=== PATIENT | female | born 1945 | race Caucasian/White ===

== ENCOUNTER 2020-08-27 12:36 | Inpatient (IN) ==
[2020-08-27] MEDS ORDERED: IOPAMIDOL 100 ML BOTTLE IV ONE (12:37)
[2020-08-27 12:53] LABS: POC Creatinine 0.9 mg/dL (0.6-1.2)
--- NOTE | 2020-08-27 13:04 | Cat Scan Report ---
History: Acute neurologic deficit with stroke symptoms technique: The brain was imaged without contrast at 2.5 mm intervals. Sagittal and coronal reformats were created. Radiation exposure was limited using dose reduction technology. FINDINGS: There is a patchy distribution of decreased attenuation in the right matter throughout the frontal and parietal lobes bilaterally. This has no mass effect. No infarct is identified. There is no hemorrhage or mass effect. No abnormal extra-axial fluid collection is present. There is low-grade atrophy in the frontal lobes and around the sylvian fissures. The right sphenoid sinus is nearly completely opacified with inflammatory material. IMPRESSION: Age-related degenerative changes above the tentorium with white matter ischemia or degeneration. severe right-sided sphenoid sinusitis Dr. Prieto was called with the results Interpreted and Authenticated by: Theodore Waddell 08/27/20
[2020-08-27 13:08] LABS: POC INR 1.1 (0.8-1.2); POC Pro Time 12.7 sec (11.9-14.5)
--- NOTE | 2020-08-27 13:28 | Emergency Department Note ---
Neuro HPI General Chief Complaint: Neuro Symptoms/Deficit Stated Complaint: neuro symptoms Time Seen by Provider: 08/27/20 12:38 Source: patient Mode of arrival: ambulatory Limitations: no limitations History of Present Illness HPI Narrative: Narrative: This pleasant 75-year-old female developed left-sided dental discomfort, and went to bed around 7 PM. Everything else seem to be normal per the son-in-law and/or daughter. When the daughter went to check on her around 930 this morning she was still in bed which is markedly abnormal for her when she usually gets up at 430 or 5:30 in the morning. She was exhibiting some slurred speech and difficulty finding words. 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 She has difficulty answering some other questions, as if she is thinking and thinking again and not able to come up with an answer even with repeated questioning. Other times she seems able to speak some things and answer some questions. She obeys commands quite well. Review of Systems ROS ROS Narrative: Narrative: Patient admits to occasional dysuria and occasionally is taking Azo. She has been evaluated in the past for UTIs and has been treated. Has not had any symptoms in the past few days. No fevers chills or sweats. No runny nose or sore throat. She does not have diarrhea. 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 Aspirin used to make her bleed but that was before this tumor was removed. She denies current chest pain. Denies shortness of breath. No cough. Mild headache. No visual changes No joint symptoms No rashes. No depression or anxiety but admits to grief due to her passing 2 years ago. No ease of bruising or bleeding. [facility] Narrative Patient History Narrative: Narrative: Medical/Surgical/Family History All Active Problems (Updated 08/27/20 @ 15:11 by Robbie Prieto DO) TIA (transient ischemic attack) (Acute) Dental infection (Acute) Sinusitis, acute, sphenoidal (Acute) Glaucoma (Acute) History of atrial fibrillation (Chronic) History of TIA (transient ischemic attack) and stroke (Acute) Medical History (Updated 08/27/20 @ 15:11 by Robbie Prieto DO) Glaucoma (Acute) History of atrial fibrillation (Chronic) Controlled with diltiazem and flecainide (Dr. Polo, [facility] in [place]; last evaluation early 2019). History of TIA (transient ischemic attack) and stroke (Acute) Surgical History (Updated 08/27/20 @ 13:48 by Robbie Prieto DO) History of cataract extraction with lens replacement (Acute) History of right shoulder replacement (Inactive) Had a second procedure also. Social History Smoking Status: Never smoker Exam Narrative Narrative: Narrative: General Limitations: no limitations General appearance: Present alert, in no apparent distress and nontoxic Head Head: Present atraumatic and normocephalic Eye Eye: Present normal appearance, PERRL and EOMI ENT ENT: Present normal oropharynx, mucous membranes moist and other (Tenderness around the left second bicuspid that is the only remaining tooth on the left side except for her posterior molar and one incisor. It has some medial DKA and it is tender around it. The left side of her jaw is moderately swollen. This is at the mid mandible on the left. It is mildly tender to her. No lymphadenopathy noted.) Neck Neck: Present trachea midline; Absent lymphadenopathy and thyromegaly Chest Chest: Present symmetric chest wall rise Respiratory Respiratory: Present normal lung sounds bilaterally; Absent respiratory distress, rales/crackles, wheezes, stridor, accessory muscle use and prolonged expiratory phase Cardiovascular Cardiovascular: Present regular rate and normal rhythm; Absent systolic murmur and diastolic murmur Adbominal Abdominal: Present soft and tenderness (Mild subjective just left of the xiphoid area.); Absent distention, guarding, rebound, rigidity, organomegaly and mass Extremities Extremities: Absent pedal edema, pretibial edema, calf tenderness and cyanosis Back Back: Present spinous process tenderness (Mild, subjective, to percussion of the mid and lower lumbar areas.); Absent CVA tenderness (R) and CVA tenderness (L) Neurological Neurological: Present alert, oriented X3 and CN II-XII intact Expanded Neurological Patient oriented to: Present person, place and time Speech: Present expressive aphasia (Seems to have mild difficulties in expressing herself. At times seems to be staring off trying to find words.) CRANIAL NERVES: EOM function (II, III, IV, ): Normal, facial palsy (VII): Normal and tongue deviation (XII): Normal CEREBELLAR FUNCTION: finger to nose: Normal and heel to lerma: Normal CEREBELLAR FUNCTION: normal gait Motor strength - LUE: 4/5 Motor strength - RUE: 4/5 Motor strength - LLE: 4/5 Motor strength - RLE: 4/5 UPPER MOTOR NEURON EXAM: jimmy neglect: Normal SENSORY EXAM UPPER EXTREMITY: Normal: light touch SENSORY EXAM LOWER EXTREMITY: Normal: light touch Psychiatric Psychiatric: Present normal affect, polite and pleasant; Absent depressed, ag itated, anxious and poor eye contact Skin Skin: Present warm (WNL) and dry; Absent cyanosis and pallor Course Vital Signs Vital signs: Vital Signs Temperature 98.0 F 08/27/20 12:41 Pulse Rate 120 H 08/27/20 12:41 Respiratory Rate 16 08/27/20 12:41 Blood Pressure 142/78 08/27/20 12:41 Pulse Oximetry (%) 99 08/27/20 12:41 Temperature 98.0 F 08/27/20 12:41 Pulse Rate 108 H 08/27/20 13:26 Respiratory Rate 11 L 08/27/20 15:02 Blood Pressure 181/90 08/27/20 15:01 Pulse Oximetry (%) 93 08/27/20 13:26 MDM MDM Narrative Medical decision making narrative: Narrative: 12:38 PM - interviewed and examined. Possible stroke with new onset of symptoms where she slept in, seemed to be slurring speech and hard finding words. She has a history of TIAs and CVA. Also hypertension. Significant risk based on these and these symptoms plus age 75. Code stroke called with labs and rapid CT. 12:49 PM - I spoke with Dr. Paredes, stroke neurologist, who agrees with no TPA given that her last known normal was 7 PM. Agrees with getting the CT angio of the head neck. 12:58 PM - radiologist indicates there is age-related degenerative changes but negative for infarct visible or bleed. Does have a right sphenoid sinusitis with inflammatory change. 1:30 PM - additional interview and exam as per HPI. Exam nonfocal and unremarkable. She seems to be speaking easily and well. She can spell world forward but can hardly get started to get out ADD or proceed to spell it backwards. She is able to spell house forward and backward but it is a little bit laborious. She indicates that she is speaking better than she was earlier. 1:46 PM - radiology read reviews that the CT angio of the head neck demonstrates some mild plaque in the internal carotid system but no stenotic significant lesions. Labs at this point INR was 1.1, creatinine (POC) 0.9. Multiple labs still pending. 2:35 PM approximately - I spoke with Dr. Paredes, stroke neurologist, who asked about seizure. There is no history of this. She recommends that patient be served inpatient and finish the TIA work-up of or including MRI, echocardiogram and consider discussion for anticoagulation with aspirin, a statin; and consider baseline lipid measurement. If her in patient work-up is negative consider outpatient EEG. Patient's labs came back with an elevated white count of 17.0. Hemoglobin slightly elevated at 15.2. Electrolytes quite unremarkable as is BUN and creatinine, anion gap. Glucose mildly elevated at 135. Minimal liver function tests and bilirubin at 1.3, 46 for AST and 41 for ALT. Troponin normal. 2:45 PM - spoke with hospitalist who is willing to admit this patient. We later a few minutes, discussed CT scanning of her job because of the swelling there which is tender. I spoke with the radiologist who indicates that there was a good view to this area on the CT scan of the head and neck with contrast and that this demonstrates edema of the fat layers but not an abscess. Dr. Godfrey, hospitalist, and is assuming care. Lab Data Result diagrams: 08/27/20 12:40 08/27/20 12:40 Labs: Lab Results 08/27/20 08/27/20 08/27/20 Range/Units 12:40 12:40 12:40 WBC 17.0 H (4.5-11.0) K/mcL RBC 5.27 H (4.00-5.20) M/mcL Hgb 15.2 H (12.0-15.0) g/dL Hct 44.2 (36.0-48.0) % MCV 83.9 (80.0-100.0) fL MCH 28.8 (26.0-34.0) pg MCHC 34.4 (31.0-36.0) g/dL RDW 14.6 H (11.5-14.5) % Plt Count 236 (140-440) K/mcL MPV 9.7 (7.4-10.4) fL Neut % (Auto) 89.0 H (38.0-78.0) % Lymph % (Auto) 3.8 L (15.0-49.0) % [place] % (Auto) 6.4 (1.0-12.0) % Eos % (Auto) 0.4 (0.0-7.0) % Baso % (Auto) 0.4 (0.0-2.0) % Lymph # (Auto) 0.64 L (1.50-4.80) K/mcL [place] # (Auto) 1.09 H (0.10-0.90) K/mcL Eos # (Auto) 0.06 (0.00-0.70) K/mcL Baso # (Auto) 0.06 (0.00-0.20) K/mcL Absolute Neutrophils 15.14 H (1.80-8.00) K/mcL POC PT 12.7 (11.9-14.5) sec PT 13.5 (11.9-14.5) sec POC INR 1.1 (0.8-1.2) INR 1.0 (0.9-1.1) APTT 31.8 (20.0-37.0) sec Sodium 134 (133-145) mmol/L Potassium 3.4 (3.3-5.1) mmol/L Chloride 95 L (96-108) mmol/L Carbon Dioxide 25 (22-30) mmol/L Anion Gap 14.0 (8.0-16.0) BUN 11 (8-23) mg/dL Creatinine 0.9 (0.6-1.1) mg/dL POC Creatinine 0.9 (0.6-1.2) mg/dL GFR Calculation 63 Glucose 135 H (70-105) mg/dL Calcium 9.3 (8.6-10.4) mg/dL Total Bilirubin 1.3 H (0.1-1.0) mg/dL AST 46 H (<32) U/L ALT 41 H (<40) U/L Alkaline Phosphatase 93 (39-117) U/L Troponin T (<0.03) ng/mL Total Protein 7.0 (5.9-8.4) gm/dL Albumin 4.2 (3.2-5.2) gm/dL Globulin 2.8 (2.2-3.7) gm/dL Albumin/Globulin Ratio 1.5 (1.0-2.3) Urine Color Urine Appearance (Clear) Urine pH (5.0-9.0) Ur Specific [place] (1.000-1.035) Urine Protein (Negative) mg/dL Urine Glucose (UA) (Negative) mg/dL Urine Ketones (Negative) mg/dL Urine Occult Blood (Negative) mg/dL Urine Nitrate (Negative) Urine Bilirubin (Negative) mg/dL Urine Urobilinogen mg/dL Ur Leukocyte Esterase (Negative) /ug Urine RBC (0-1) /hpf Urine WBC (0-4) /hpf Ur Squamous Epith Cells (0-4) /hpf Urine Bacteria (0) /hpf Ur Culture Indicated? 08/27/20 08/27/20 Range/Units 12:40 13:37 WBC (4.5-11.0) K/mcL RBC (4.00-5.20) M/mcL Hgb (12.0-15.0) g/dL Hct (36.0-48.0) % MCV (80.0-100.0) fL MCH (26.0-34.0) pg MCHC (31.0-36.0) g/dL RDW (11.5-14.5) % Plt Count (140-440) K/mcL MPV (7.4-10.4) fL Neut % (Auto) (38.0-78.0) % Lymph % (Auto) (15.0-49.0) % [place] % (Auto) (1.0-12.0) % Eos % (Auto) (0.0-7.0) % Baso % (Auto) (0.0-2.0) % Lymph # (Auto) (1.50-4.80) K/mcL [place] # (Auto) (0.10-0.90) K/mcL Eos # (Auto) (0.00-0.70) K/mcL Baso # (Auto) (0.00-0.20) K/mcL Absolute Neutrophils (1.80-8.00) K/mcL POC PT (11.9-14.5) sec PT (11.9-14.5) sec POC INR (0.8-1.2) INR (0.9-1.1) APTT (20.0-37.0) sec Sodium (133-145) mmol/L Potassium (3.3-5.1) mmol/L Chloride (96-108) mmol/L Carbon Dioxide (22-30) mmol/L Anion Gap (8.0-16.0) BUN (8-23) mg/dL Creatinine (0.6-1.1) mg/dL POC Creatinine (0.6-1.2) mg/dL GFR Calculation Glucose (70-105) mg/dL Calcium (8.6-10.4) mg/dL Total Bilirubin (0.1-1.0) mg/dL AST (<32) U/L ALT (<40) U/L Alkaline Phosphatase (39-117) U/L Troponin T < 0.01 (<0.03) ng/mL Total Protein (5.9-8.4) gm/dL Albumin (3.2-5.2) gm/dL Globulin (2.2-3.7) gm/dL Albumin/Globulin Ratio (1.0-2.3) Urine Color Yellow Urine Appearance Clear (Clear) Urine pH 7.0 (5.0-9.0) Ur Specific [place] 1.026 (1.000-1.035) Urine Protein Negative (Negative) mg/dL Urine Glucose (UA) Negative (Negative) mg/dL Urine Ketones 5 A (Negative) mg/dL Urine Occult Blood 0.03 (Negative) mg/dL Urine Nitrate Negative (Negative) Urine Bilirubin Negative (Negative) mg/dL Urine Urobilinogen 2.0 A mg/dL Ur Leukocyte Esterase Negative (Negative) /ug Urine RBC 4 H (0-1) /hpf Urine WBC < 1 (0-4) /hpf Ur Squamous Epith Cells 2 (0-4) /hpf Urine Bacteria None (0) /hpf Ur Culture Indicated? No Discharge Plan Patient/Caregiver Discharge Instructions Pt seen by SIGNAL REPAIRER/PA only: No Clinical Impression: TIA (transient ischemic attack), Dental infection, Sinusitis, acute, sphenoidal Patient Disposition: Xfer As Inpt ([facility])
--- NOTE | 2020-08-27 13:49 | Cat Scan Report ---
History: Acute stroke symptoms TECHNIQUE: Following injection of intravenous nonionic contrast the head and neck were imaged separately scanning during arterial phase at 2.5 mm intervals. Sagittal and coronal reformats were created of the head. Sagittal, coronal and curved linear reformatted images of the carotid arteries were acquired. The radiation exposure was limited using dose reduction technology. FINDINGS: NECK: The aortic arch and great vessels arising from the aorta are normal in caliber. Small amount of plaque is seen along the wall of the thoracic aorta. The aorta is normal in caliber with no aneurysm or dissection. Left common carotid is moderately tortuous. Right common carotid is normal. Small amount of plaque is present along the wall of the proximal internal carotids bilaterally. These are not causing stenosis. Mid and distal portions of both internal carotids are tortuous but normal in caliber. The vertebral arteries are normal in caliber. Right side is dominant. There are several small calcified plaques along the wall of the cavernous portions of both internal carotids. These are not causing stenosis. The supraclinoid internal carotids are normal. The anterior and middle cerebral arteries are normal in caliber and symmetric. There is a patent anterior communicating artery and small bilateral posterior communicating arteries. Basilar artery and branches in the basilar artery are normal caliber. There is no intracranial stenosis, thrombosis, aneurysm or vascular malformation. No enhancing lesion is present. Right sphenoid sinus is nearly completely opacified due to sinusitis. 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 Severe disc space narrowing is present at C6-7 and there is moderate disc space narrowing at C3-4, C4-5 and C5-6. There medium-size spurs on the posterior border of the C 67 disc protruding into the central canal. IMPRESSION: Mild atherosclerotic disease in the cervical and intracranial carotid arteries bilaterally but without evidence of stenosis or thrombosis Normal intracranial arterial circulation Dr. Prieto was called with the results Interpreted and Authenticated by: Theodore Waddell 08/27/20
[2020-08-27 14:04] LABS: ALT/SGPT 41 U/L (<40); AST/SGOT 46 U/L (<32); Albumin 4.2 gm/dL (3.2-5.2); Albumin/Globulin Ratio 1.5 (1.0-2.3); Alkaline Phosphatase 93 U/L (39-117); Bilirubin,Total 1.3 mg/dL (0.1-1.0); Blood Urea Nitrogen 11 mg/dL (8-23); Calcium 9.3 mg/dL (8.6-10.4); Carbon Dioxide 25 mmol/L (22-30); Chloride 95 mmol/L (96-108); Globulin 2.8 gm/dL (2.2-3.7); Glomerular Filtration Rate 63; Glucose 135 mg/dL (70-105)
[2020-08-27 14:05] LABS: Partial Thromboplastin Time 31.8 sec (20.0-37.0); Prothrombin Time 13.5 sec (11.9-14.5)
[2020-08-27 14:26] LABS: Appearance,Urine CLEAR (Clear); Bilirubin,Urine Negative (Negative); Color,Urine YELLOW; Culture Indicated,Urine No; Glucose,Urine (UA) Negative (Negative); Ketones,Urine 5 mg/dL (Negative); Leukocyte Esterase,Urine Negative /ug (Negative); Nitrate,Urine Negative (Negative); Protein,Urine Negative (Negative); Specific Gravity,Urine 1.026 (1.000-1.035); Urine Blood 0.03 mg/dL (Negative); Urine RBC 4 /hpf (0-1); Urine Squamous Epithelial Cell 2 /hpf (0-4); Urine WBC < 1 /hpf (0-4)
[2020-08-27 14:37] LABS: Basophils # (Auto) 0.06 K/mcL (0.00-0.20); Basophils % (Auto) 0.4 % (0.0-2.0); Eosinophils # (Auto) 0.06 K/mcL (0.00-0.70); Eosinophils % (Auto) 0.4 % (0.0-7.0); Hematocrit 44.2 % (36.0-48.0); Hemoglobin 15.2 g/dL (12.0-15.0); Lymphocytes # (Auto) 0.64 K/mcL (1.50-4.80); Lymphocytes % (Auto) 3.8 % (15.0-49.0); Mean Cell Volume 83.9 fL (80.0-100.0); Mean Corpuscular HGB Conc 34.4 g/dL (31.0-36.0); Mean Platelet Volume 9.7 fL (7.4-10.4); Monocytes # (Auto) 1.09 K/mcL (0.10-0.90); Monocytes % (Auto) 6.4 % (1.0-12.0); Platelet Count 236 K/mcL (140-440); RBC 5.27 M/mcL (4.00-5.20); Red Cell Distribution Width 14.6 % (11.5-14.5)
[2020-08-27] MEDS ORDERED: ASPIRIN 81 MG TAB.CHEW CHEWED ONE (14:50)
[2020-08-27] MEDS ORDERED: 0.9 % SODIUM CHLORIDE 500 ML IV ONE (14:50)
--- NOTE | 2020-08-27 15:17 | Internal Med History&Physical ---
HPI History of Present Illness Patient information: Note initiated : 08/27/20 at 3:07 pm Service Date, if different from initiated Date: [] Patient: Zenaida Odonnell a 75 y/o F admitted on for neuro symptoms. Chief Complaint: [] History of present illness: Ms. Odonnell is a 75 year old F Who was feeling a little bit ill yesterday complaining of some left jaw swelling and discomfort and worried about a tooth infection possibly. This morning she felt worse. And her family checked in on her she was still sleeping in which is unusual. I also found that she seemed to be mentally's slow difficulty expressing herself and they are worried about another stroke. In the ED she evaluated she had a CT head neck which showed no significant arterial stenosis and no acute stroke. The ED physician did discuss the CT with the radiologist and specifically talked about the jaw and there was noted to be some soft tissue edema but no abscess or other concerning findings, there was noted to be right sphenoid sinusitis. Neurologist was contacted. Patient was out of TPA window. Recommended MRI and echo. Patient is in sinus rhythm but does have a history of atrial fibrillation has been on flecainide diltiazem. 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 She was found to be hypertensive in the ED as well. She believes he took her medication recently. We do not have her full list of medications as nursing is currently trying to obtain that information. She does have a headache no other complaints. No chest pain shortness of breath. No numbness tingling or vision changes. No focal weakness. Review of Systems: Positives as above. Denies fever/chills/nausea/vomiting/chest or abdominal pain/cough/dyspnea/diarrhea. Remaining 10 point review of system reviewed negative. PFSH PFSH All Active Problems (Updated 08/27/20 @ 15:11 by Robbie Prieto DO) TIA (transient ischemic attack) (Acute) Dental infection (Acute) Sinusitis, acute, sphenoidal (Acute) Glaucoma (Acute) History of atrial fibrillation (Chronic) History of TIA (transient ischemic attack) and stroke (Acute) Medical History (Updated 08/27/20 @ 15:11 by Robbie Prieto DO) Glaucoma (Acute) History of atrial fibrillation (Chronic) Controlled with diltiazem and flecainide (Dr. Polo, [facility] in [place]; last evaluation early 2019). History of TIA (transient ischemic attack) and stroke (Acute) Surgical History (Updated 08/27/20 @ 13:48 by Robbie Prieto DO) History of cataract extraction with lens replacement (Acute) History of right shoulder replacement (Inactive) Had a second procedure also. Social History (Updated 08/27/20 @ 15:11 by Smith Godfrey DO) smoking status: Never smoker additional history: Family history: Mother with pulmonary embolism at age 43 Father of a myocardial infarction age 73 Social history: Patient denies tobacco alcohol and lives by herself. She is visiting from out of town EXAM Constitutional Vitals: Temp Pulse Resp BP Pulse Ox 98.0 F 108 H 11 L 181/90 93 08/27/20 12:41 08/27/20 13:26 08/27/20 15:02 08/27/20 15:01 08/27/20 13:26 Exam: General: Alert, Awake, No acute Distress Eyes/N/T: EOMI, PERRL, Head/Neck: neck supple, normocephalic atraumatic CV: RRR, No murmurs, normal s1/s2 Pulm: Clear b/l, no wheezing/rhonchi/rales Abd: soft, nontender, +BS x4 Ext: no clubbing/cyanosis/edema Neuro: Alert, no focal deficits, moves all extremities, CN 2-12 grossly intact, symmetrical strength b/l upper/lower, sensations intact b/l upper/lower. Speech clear but she seems slow to answer some questions appears as some difficulty recalling information specifically medications and some of her other history Skin: warm/dry DATA Data Completed and Pending Labs: Labs from last 24 hours 08/27/20 08/27/20 08/27/20 13:37 12:40 12:40 WBC RBC Hgb Hct MCV MCH MCHC RDW Plt Count MPV Neut % (Auto) Lymph % (Auto) [place] % (Auto) Eos % (Auto) Baso % (Auto) Lymph # (Auto) [place] # (Auto) Eos # (Auto) Baso # (Auto) Absolute Neutrophils POC PT PT POC INR INR APTT Sodium 134 Potassium 3.4 Chloride 95 L Carbon Dioxide 25 Anion Gap 14.0 BUN 11 Creatinine 0.9 POC Creatinine 0.9 GFR Calculation 63 Glucose 135 H Calcium 9.3 Total Bilirubin 1.3 H AST 46 H ALT 41 H Alkaline Phosphatase 93 Troponin T < 0.01 Total Protein 7.0 Albumin 4.2 Globulin 2.8 Albumin/Globulin Ratio 1.5 Urine Color Yellow Urine Appearance Clear Urine pH 7.0 Ur Specific [place] 1.026 Urine Protein Negative Urine Glucose (UA) Negative Urine Ketones 5 A Urine Occult Blood 0.03 Urine Nitrate Negative Urine Bilirubin Negative Urine Urobilinogen 2.0 A Ur Leukocyte Esterase Negative Urine RBC 4 H Urine WBC < 1 Ur Squamous Epith Cells 2 Urine Bacteria None Ur Culture Indicated? No 08/27/20 08/27/20 12:40 12:40 WBC 17.0 H RBC 5.27 H Hgb 15.2 H Hct 44.2 MCV 83.9 MCH 28.8 MCHC 34.4 RDW 14.6 H Plt Count 236 MPV 9.7 Neut % (Auto) 89.0 H Lymph % (Auto) 3.8 L [place] % (Auto) 6.4 Eos % (Auto) 0.4 Baso % (Auto) 0.4 Lymph # (Auto) 0.64 L [place] # (Auto) 1.09 H Eos # (Auto) 0.06 Baso # (Auto) 0.06 Absolute Neutrophils 15.14 H POC PT 12.7 PT 13.5 POC INR 1.1 INR 1.0 APTT 31.8 Sodium Potassium Chloride Carbon Dioxide Anion Gap BUN Creatinine POC Creatinine GFR Calculation Glucose Calcium Total Bilirubin AST ALT Alkaline Phosphatase Troponin T Total Protein Albumin Globulin Albumin/Globulin Ratio Urine Color Urine Appearance Urine pH Ur Specific [place] Urine Protein Urine Glucose (UA) Urine Ketones Urine Occult Blood Urine Nitrate Urine Bilirubin Urine Urobilinogen Ur Leukocyte Esterase Urine RBC Urine WBC Ur Squamous Epith Cells Urine Bacteria Ur Culture Indicated? A/P Narrative A/P Narrative: A: *TIA vs CVA (h/o CVA's) with impaired cognition, difficulty recalling information: -ABCD=4-5 *AFib: has been on Diltiazem/flecainide/ASA. currently in NSR -Had a bleeding tumor that was removed years ago which I believe why she wasn't on anticoagulation, no discussion since that time regarding anticoagulation per pt -follows with [facility] in [place] *HTN: 2/2 above *sinusitis/?developing oral infection left lower -CT no abscess but left jaw soft tissue swelling * P: -ASA/Statin -Discussion of anticoagulation -MRI/Echo -Obtain records from [place] [facility] -Permissive hypertension 24 -lipid panel -clarify home medications -abx - -PT/OT/ST -ppx: Lovenox DNR Time Spent With Patient Time: Total time spent is greater than 50% in coordination of care (as documented) at patient's floor/unit and/or counseling patient: QUALITY Stroke Onset of Symptoms Date: 08/26/20 Onset of Symptoms Time: 19:00 Symptom Onset Unknown: Yes
[2020-08-27] MEDS ORDERED: 0.9 % SODIUM CHLORIDE 1,000 ML IV SCH (16:32)
[2020-08-27] MEDS ORDERED: IPRATROPIUM/ALBUTEROL 3 ML AMPUL.NEB NEB PRN (16:32)
[2020-08-27] MEDS ORDERED: SENNOSIDES 1 TABLET PO PRN (16:32)
[2020-08-27] MEDS ORDERED: METOPROLOL TARTRATE 5 MG/5 ML VIAL IV PRN (16:32)
[2020-08-27] MEDS ORDERED: ACETAMINOPHEN 325 MG TABLET PO PRN (16:32)
[2020-08-27] MEDS ORDERED: LACTULOSE 20 GM/30 ML ORAL.SOL PO PRN (16:32)
[2020-08-27] MEDS ORDERED: MAGNESIUM SULFATE 2 GM/50 ML BAG IV PRN (16:32)
[2020-08-27] MEDS ORDERED: ONDANSETRON 4 MG/2 ML VIAL IV PRN (16:32)
[2020-08-27] MEDS ORDERED: LABETALOL 5 MG/ML ML IV PRN (16:32)
[2020-08-27] MEDS ORDERED: POTASSIUM CHLORIDE 20 MEQ TABLET PO PRN ×2 (16:32)
[2020-08-27] MEDS ORDERED: AMOXICILLIN/POTASSIUM CLAV 875 MG TABLET PO SCH (17:30)
[2020-08-27 17:34] LABS: C-Reactive Protein 17.7 mg/dL (0.03-0.80)
--- NOTE | 2020-08-27 17:44 | Magnetic Resonance Report ---
History: Stroke symptoms with difficulty speaking TECHNIQUE: Stroke protocol was utilized to technique: The diffusion images show no evidence of an infarct. No hemorrhage or mass are present. The T2 FLAIR images reveal the presence of numerous high signal lesions in the centrum semiovale throughout the frontal and parietal lobes and posterior temporal lobes. These have no mass effect or surrounding edema. There is sparing of the overlying cortex. Ventricles are normal in size. The basal ganglia brainstem and cerebellum are normal. Right sphenoid sinus is completely opacified with secretions or inflammatory material. IMPRESSION: No evidence of hemorrhage or acute infarct Severe white matter disease above the tentorium which may be due to age-related ischemia or degeneration Dr. Godfrey was called with the results Interpreted and Authenticated by: Theodore Waddell 08/27/20
[2020-08-27 17:49] LABS: Lymphocytes % 6 % (15-49); Monocytes % (Manual) 2 % (1-12); Platelet Estimate NORMAL (Normal); RBC Morphology NORMAL (Normal); Segmented Neutrophils % 92 % (38-78)
[2020-08-27 18:35] LABS: Erythrocyte Sedimentation Rate 7 mm/hr (0-20)
[2020-08-27] MEDS: ATORVASTATIN 40 MG TABLET PO SCH (20:22)
[2020-08-27] MEDS: PIPERACILLIN SODIUM/TAZOBACTAM 3.375 GM in DEXTROSE 5% IN WATER 50 ML IV SCH (20:22)
[2020-08-27] MEDS: 0.9 % SODIUM CHLORIDE 10 ML SYRINGE IV SCH (20:23)
[2020-08-27] MEDS: DOCUSATE SODIUM 100 MG CAPSULE PO SCH (20:29)
[2020-08-27] MEDS: HYDROcodone/APAP 10/325MG TABLET PO PRN (20:29)
[2020-08-27] MEDS: AMITRIPTYLINE 25 MG TABLET PO SCH (20:29)
[2020-08-28] MEDS: PIPERACILLIN SODIUM/TAZOBACTAM 3.375 GM in DEXTROSE 5% IN WATER 50 ML IV SCH ×5 (00:35→23:56)
[2020-08-28] MEDS: 0.9 % SODIUM CHLORIDE 10 ML SYRINGE IV SCH ×3 (05:47→20:05)
[2020-08-28] MEDS: HYDROcodone/APAP 10/325MG TABLET PO PRN ×2 (06:25→17:30)
[2020-08-28 06:46] LABS: Basophils # (Auto) 0.04 K/mcL (0.00-0.20); Basophils % (Auto) 0.4 % (0.0-2.0); Eosinophils # (Auto) 0.03 K/mcL (0.00-0.70); Eosinophils % (Auto) 0.3 % (0.0-7.0); Hemoglobin 12.4 g/dL (12.0-15.0); Lymphocytes # (Auto) 0.54 K/mcL (1.50-4.80); Mean Cell Volume 86.7 fL (80.0-100.0); Mean Corpuscular HGB Conc 33.5 g/dL (31.0-36.0); Mean Platelet Volume 9.9 fL (7.4-10.4); Monocytes # (Auto) 0.55 K/mcL (0.10-0.90); Monocytes % (Auto) 6.2 % (1.0-12.0); Neutrophils % (Auto) 87.1 % (38.0-78.0); Platelet Count 173 K/mcL (140-440); RBC 4.27 M/mcL (4.00-5.20); Red Cell Distribution Width 14.7 % (11.5-14.5); WBC 8.9 K/mcL (4.5-11.0)
[2020-08-28 07:19] LABS: ALT/SGPT 62 U/L (<40); AST/SGOT 58 U/L (<32); Albumin 3.3 gm/dL (3.2-5.2); Albumin/Globulin Ratio 1.4 (1.0-2.3); Alkaline Phosphatase 80 U/L (39-117); Bilirubin,Direct 0.5 mg/dL (<0.3); Bilirubin,Total 1.5 mg/dL (0.1-1.0); Blood Urea Nitrogen 11 mg/dL (8-23); Calcium 8.6 mg/dL (8.6-10.4); Carbon Dioxide 28 mmol/L (22-30); Chloride 99 mmol/L (96-108); Globulin 2.4 gm/dL (2.2-3.7); Glomerular Filtration Rate 63; Glucose 105 mg/dL (70-105); Lactate Dehydrogenase 173 U/L (135-225); Phosphorous 2.2 mg/dL (2.5-4.5); Triglycerides 65 mg/dL (<150); Uric Acid 1.9 mg/dL (2.5-8.0)
[2020-08-28] MEDS ORDERED: POTASSIUM CHLORIDE 40 MEQ in DEXTROSE 5% IN WATER 500 ML IV ONE (07:20)
[2020-08-28] MEDS ORDERED: POTASSIUM CHLORIDE 20 MEQ TABLET PO ONE (07:20)
--- NOTE | 2020-08-28 07:24 | Internal Med Progress Note ---
SUBJECTIVE Subjective Patient information: Note initiated : 08/28/20 at 7:16 am Service Date, if different from initiated Date: [] Patient: Zenaida Odonnell a 75 y/o F admitted on 08/27/20 for neuro symptoms. Chief Complaint: [] Interval history: History of present illness: Ms. Odonnell is a 75 year old F Who was feeling a little bit ill yesterday complaining of some left jaw swelling and discomfort and worried about a tooth infection possibly. This morning she felt worse. And her family checked in on her she was still sleeping in which is unusual. I also found that she seemed to be mentally's slow difficulty expressing herself and they are worried about another stroke. In the ED she evaluated she had a CT head neck which showed no significant arterial stenosis and no acute stroke. The ED physician did discuss the CT with the radiologist and specifically talked about the jaw and there was noted to be some soft tissue edema but no abscess or other concerning findings, there was noted to be right sphenoid sinusitis. Neurologist was contacted. Patient was out of TPA window. Recommended MRI and echo. Patient is in sinus rhythm but does have a history of atrial fibrillation has been on flecainide diltiazem. 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 She was found to be hypertensive in the ED as well. She believes he took her medication recently. We do not have her full list of medications as nursing is currently trying to obtain that information. She does have a headache no other complaints. No chest pain shortness of breath. No numbness tingling or vision changes. No focal weakness. 08/28 Patient states she is feeling better today. No overnight events or new complaints. She feels her swelling in her jaw is improved. Mentation more clear. No leukocytosis on this morning's labs. Mild transaminitis but denies abdominal pain. Mildly elevated procalcitonin yesterday. Constitutional Vitals: Vital Signs Temp Pulse Resp BP Pulse Ox 99.3 F H 79 20 151/68 96 08/28/20 04:01 08/28/20 04:01 08/28/20 04:01 08/28/20 04:01 08/28/20 04:01 Period Temp Pulse Resp BP Sys/Roa Pulse Ox Last 24 Hr 98.0 F-101.6 F 66-120 09-20 108-193/45-101 91-99 Intake and Output 08/27/20 08/28/20 08/28/20 21:59 05:59 13:59 Intake Total 550 350 Balance 550 350 Weight 64.954 kg Intake & Output: Intake & Output 08/27/20 08/28/20 08/28/20 21:59 05:59 13:59 Intake Total 550 350 Balance 550 350 Weight 64.954 kg Intake: IV 550 50 Sodium Chloride 0.9% 500 ml @ 500 Wide Open IV BOLUS ONE Rx#: [id number] Zosyn 3.375 gm In Dextrose 5% 50 50 in Water 50 ml @ 100 mls/hr IV Q6H [facility] Rx#:[id number] Oral 300 Other: Stool Size Small Stool Color Brown Stool Consistency Soft # Voids 1 # Bowel Movements 1 Exam: General: Alert, Awake, No acute Distress Eyes/N/T: EOMI,, Head/Neck: neck supple, CV: RRR, No murmurs, Pulm: Clear b/l, no wheezing/rhonchi/rales Abd: soft, nontender, +BS x4 Ext: no clubbing/cyanosis/edema Neuro: Alert, no focal deficits, moves all extremities, CN 2-12 grossly intact, symmetrical strength b/l upper/lower, sensations intact b/l upper/lower. Speech clear Skin: warm/dry OBJ DATA Labs CBC & Chem 7: 08/28/20 05:08 08/28/20 05:08 Labs: Abnormal Lab Results 08/28/20 08/27/20 08/27/20 05:08 16:37 16:36 WBC RBC Hgb RDW 14.7 H Neut % (Auto) 87.1 H Lymph % (Auto) 6.0 L Lymph # (Auto) 0.54 L [place] # (Auto) Seg Neutrophils % 92 H Lymphocytes % 6 L Absolute Neutrophils Chloride Glucose Total Bilirubin AST ALT C-Reactive Protein LDL Cholesterol, Calc Procalcitonin 0.46 H Urine Ketones Urine Urobilinogen Urine RBC 08/27/20 08/27/20 08/27/20 13:37 12:40 12:40 WBC RBC Hgb RDW Neut % (Auto) Lymph % (Auto) Lymph # (Auto) [place] # (Auto) Seg Neutrophils % Lymphocytes % Absolute Neutrophils Chloride 95 L Glucose 135 H Total Bilirubin 1.3 H AST 46 H ALT 41 H C-Reactive Protein 17.70 H LDL Cholesterol, Calc 100 H Procalcitonin Urine Ketones 5 A Urine Urobilinogen 2.0 A Urine RBC 4 H 08/27/20 12:40 WBC 17.0 H RBC 5.27 H Hgb 15.2 H RDW 14.6 H Neut % (Auto) 89.0 H Lymph % (Auto) 3.8 L Lymph # (Auto) 0.64 L [place] # (Auto) 1.09 H Seg Neutrophils % Lymphocytes % Absolute Neutrophils 15.14 H Chloride Glucose Total Bilirubin AST ALT C-Reactive Protein LDL Cholesterol, Calc Procalcitonin Urine Ketones Urine Urobilinogen Urine RBC Meds: Medications Acetaminophen (Tylenol) 650 mg PO Q6HP PRN PRN Reason: PAIN/FEVER > 101 Last Admin: 08/27/20 17:33 Dose: 650 mg Documented by: Hydrocodone Bitart/Acetaminophen ([place] 10/325mg) 1 tab PO Q6HP PRN; Protocol PRN Reason: Pain Last Admin: 08/28/20 06:25 Dose: 1 tab Documented by: Albuterol/Ipratropium (Duoneb) 3 ml NEB Q4HP PRN PRN Reason: Shortness Of Breath Amitriptyline HCl (Elavil) 25 mg PO HS [facility] Last Admin: 08/27/20 20:29 Dose: 25 mg Documented by: Aspirin (Aspirin) 81 mg PO DAILY [facility] Atorvastatin Calcium (Lipitor) 80 mg PO HS [facility] Last Admin: 08/27/20 20:22 Dose: 80 mg Documented by: Citalopram Hydrobromide (Celexa) 10 mg PO DAILY [facility] Diltiazem HCl (Cardizem Cd) 360 mg PO DAILY [facility] Docusate Sodium (Colace) 100 mg PO BID [facility] Last Admin: 08/27/20 20:29 Dose: 100 mg Documented by: Enoxaparin Sodium (Lovenox) 40 mg SQ DAILY [facility] Hydrochlorothiazide (Oretic) 25 mg PO QDAY [facility] Potassium Chloride 40 meq/ (Dextrose) 520 mls @ 130 mls/hr IV UD PRN PRN Reason: Potassium < 3 Magnesium Sulfate (Magnesium Sulfate) 2 gm in 50 mls @ 50 mls/hr IV UD PRN PRN Reason: Magnesium </= 1.6 Piperacillin Sod/Tazobactam (Sod 3.375 gm/ Dextrose) 50 mls @ 100 mls/hr IV Q6H [facility]; Protocol Last Admin: 08/28/20 05:29 Dose: 100 mls/hr Documented by: Labetalol HCl (Trandate) 0 mg IV Q2HP PRN PRN Reason: Hypertension Lactulose (Cephulac) 20 gm PO DAILYP PRN PRN Reason: Constipation Losartan Potassium (Cozaar) 100 mg PO DAILY [facility] Metoprolol Tartrate (Lopressor) 5 mg IV Q2HP PRN PRN Reason: Tachyarrhythmias HR>110 Omeprazole (Prilosec) 20 mg PO ACB [facility] Ondansetron HCl (Zofran) 4 mg IV Q4HP PRN PRN Reason: Nausea And Vomiting Pneumococcal Polyvalent Vaccine (Pneumovax 23) 0.5 ml IM .ONCE ONE Stop: 08/29/20 10:01 Potassium Chloride (Kdur) 40 meq PO UD PRN PRN Reason: Potssium is 3-3.5 Potassium Chloride (Kdur) 40 meq PO UD PRN PRN Reason: Potassium < 3 Senna (Senokot) 2 tab PO DAILYP PRN PRN Reason: Constipation Sodium Chloride (Saline Flush) 10 ml IV Q8 [facility] Last Admin: 08/28/20 05:47 Dose: Not Given Documented by: A/P Narrative A/P Narrative: A: *?TIA with impaired cognition, difficulty recalling information; vs sepsis related -ABCD=4-5 -MRI no acute infarct but significant white matter disease *AFib: has been on Diltiazem/flecainide/ASA. 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
[2020-08-28] MEDS: POTASSIUM CHLORIDE 40 MEQ in DEXTROSE 5% IN WATER 500 ML IV PRN ×2 (07:26→07:33)
[2020-08-28] MEDS: OMEPRAZOLE 20 MG CAPSULE PO SCH (07:33)
[2020-08-28] MEDS: DILTIAZEM 180 MG CAP.XL.24H PO SCH (11:43)
[2020-08-28] MEDS: LOSARTAN 50 MG TABLET PO SCH (11:44)
[2020-08-28] MEDS: DOCUSATE SODIUM 100 MG CAPSULE PO SCH ×2 (11:45→20:01)
[2020-08-28] MEDS: HYDROCHLOROTHIAZIDE 25 MG TABLET PO SCH (11:45)
[2020-08-28] MEDS: ASPIRIN 81 MG TAB.CHEW PO SCH (11:45)
[2020-08-28] MEDS: ENOXAPARIN 40 MG/0.4 ML SYRINGE SQ SCH (11:45)
[2020-08-28] MEDS: CITALOPRAM 20 MG TABLET PO SCH (11:46)
--- NOTE | 2020-08-28 11:50 | Ultrasound Report ---
History: Elevated liver enzymes FINDINGS: The portal triads in both left and right lobes of the liver are unusually bright and echogenic. The overall size liver is normal. No mass is identified. Doppler shows normal blood flow in the hepatic and portal veins. Gallbladder is somewhat distended and measures 10.2 cm in length. The wall measures up to 3.4 mm in thickness. No para cholecystic fluid collection is present in the patient was nontender while scanning over the gallbladder. The extrahepatic bile ducts are mildly distended and range from 5 to 7 mm in size. No stone is seen within the duct. The head neck and body the pancreas are normal. The tail is obscured by bowel gas. No ascites is present. 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 This is a nonspecific finding. This may be seen with acute hepatitis. It is also associated with leukemia or lymphoma. A fasting liver may sometimes have a similar appearance. Distended gallbladder with borderline thickened wall and borderline dilated bile ducts Interpreted and Authenticated by: Theodore Waddell 08/28/20
[2020-08-28] MEDS: ATORVASTATIN 40 MG TABLET PO SCH (20:05)
[2020-08-28] MEDS: AMITRIPTYLINE 25 MG TABLET PO SCH (20:05)
[2020-08-29] MEDS: PIPERACILLIN SODIUM/TAZOBACTAM 3.375 GM in DEXTROSE 5% IN WATER 50 ML IV SCH ×2 (05:37→12:06)
[2020-08-29] MEDS: 0.9 % SODIUM CHLORIDE 10 ML SYRINGE IV SCH ×3 (05:37→20:27)
[2020-08-29] MEDS: OMEPRAZOLE 20 MG CAPSULE PO SCH (06:26)
--- NOTE | 2020-08-29 07:24 | Internal Med Progress Note ---
SUBJECTIVE Subjective Patient information: Note initiated : 08/29/20 at 7:20 am Service Date, if different from initiated Date: [] Patient: Zenaida Odonnell a 75 y/o F admitted on 08/27/20 for neuro symptoms. Chief Complaint: [] Interval history: History of present illness: Ms. Odonnell is a 75 year old F Who was feeling a little bit ill yesterday complaining of some left jaw swelling and discomfort and worried about a tooth infection possibly. This morning she felt worse. And her family checked in on her she was still sleeping in which is unusual. I also found that she seemed to be mentally's slow difficulty expressing herself and they are worried about another stroke. In the ED she evaluated she had a CT head neck which showed no significant arterial stenosis and no acute stroke. The ED physician did discuss the CT with the radiologist and specifically talked about the jaw and there was noted to be some soft tissue edema but no abscess or other concerning findings, there was noted to be right sphenoid sinusitis. Neurologist was contacted. Patient was out of TPA window. Recommended MRI and echo. Patient is in sinus rhythm but does have a history of atrial fibrillation has been on flecainide diltiazem. 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 She was found to be hypertensive in the ED as well. She believes he took her medication recently. We do not have her full list of medications as nursing is currently trying to obtain that information. She does have a headache no other complaints. No chest pain shortness of breath. No numbness tingling or vision changes. No focal weakness. 08/28 Patient states she is feeling better today. No overnight events or new complaints. She feels her swelling in her jaw is improved. Mentation more clear. No leukocytosis on this morning's labs. Mild transaminitis but denies abdominal pain. Mildly elevated procalcitonin yesterday. 08/29 Feeling better. No new complaints or overnight issues. Potassium and Phos mi ldly low will replace. Possible 1 bottle out of 4 with a gram-positive cocci but blood culture question contaminant, further clarification. Review of Systems: denies headache/fever/chills/nausea/vomiting/chest or abdominal pain/cough/dyspnea/diarrhea. Otherwise see above. Constitutional Vitals: Vital Signs Temp Pulse Resp BP Pulse Ox 99.1 F H 63 16 159/94 94 08/29/20 04:01 08/29/20 04:01 08/29/20 04:01 08/29/20 04:01 08/29/20 04:01 Period Temp Pulse Resp BP Sys/Roa Pulse Ox Last 24 Hr 97.2 F-99.1 F 63-78 14-25 143-187/60-94 94-97 Intake and Output 08/28/20 08/29/20 08/29/20 21:59 05:59 13:59 Intake Total 590 50 570 Balance 590 50 570 Weight 63.985 kg Intake & Output: Intake & Output 08/28/20 08/29/20 08/29/20 21:59 05:59 13:59 Intake Total 590 50 570 Balance 590 50 570 Weight 63.985 kg Intake: IV 50 50 570 Zosyn 3.375 gm In Dextrose 5% 50 50 50 in Water 50 ml @ 100 mls/hr IV Q6H [facility] Rx#:[id number] Potassium Chloride 40 Meq In 520 Dextrose 5% in Water 500 ml @ 130 mls/hr IV UD PRN Rx#: [id number] Oral 540 Other: Stool Size Copious Copious Stool Color Brown Brown Stool Consistency Loose Loose # Voids 2 1 1 # Bowel Movements 1 Exam: General: Alert, Awake, No acute Distress Eyes/N/T: EOMI,, Head/Neck: neck supple, CV: RRR, No murmurs, Pulm: Clear b/l, no wheezing/rhonchi/rales Abd: soft, nontender, +BS x4 Ext: no clubbing/cyanosis/edema Neuro: Alert, no focal deficits, moves all extremities, Speech clear Skin: warm/dry OBJ DATA Labs CBC & Chem 7: 08/28/20 05:08 08/29/20 05:10 Labs: Abnormal Lab Results 08/28/20 08/28/20 08/28/20 05:08 05:08 05:08 WBC RBC Hgb RDW 14.7 H Neut % (Auto) 87.1 H Lymph % (Auto) 6.0 L Lymph # (Auto) 0.54 L [place] # (Auto) Seg Neutrophils % Lymphocytes % Absolute Neutrophils Potassium 2.9 L* Chloride Glucose Uric Acid 1.9 L Phosphorus 2.2 L Total Bilirubin 1.5 H Direct Bilirubin 0.5 H GGT 86 H AST 58 H ALT 62 H C-Reactive Protein 29.00 H Total Protein 5.7 L LDL Cholesterol, Calc Procalcitonin Urine Ketones Urine Urobilinogen Urine RBC 08/27/20 08/27/20 08/27/20 16:37 16:36 13:37 WBC RBC Hgb RDW Neut % (Auto) Lymph % (Auto) Lymph # (Auto) [place] # (Auto) Seg Neutrophils % 92 H Lymphocytes % 6 L Absolute Neutrophils Potassium Chloride Glucose Uric Acid Phosphorus Total Bilirubin Direct Bilirubin GGT AST ALT C-Reactive Protein Total Protein LDL Cholesterol, Calc Procalcitonin 0.46 H Urine Ketones 5 A Urine Urobilinogen 2.0 A Urine RBC 4 H 08/27/20 08/27/20 08/27/20 12:40 12:40 12:40 WBC 17.0 H RBC 5.27 H Hgb 15.2 H RDW 14.6 H Neut % (Auto) 89.0 H Lymph % (Auto) 3.8 L Lymph # (Auto) 0.64 L [place] # (Auto) 1.09 H Seg Neutrophils % Lymphocytes % Absolute Neutrophils 15.14 H Potassium Chloride 95 L Glucose 135 H Uric Acid Phosphorus Total Bilirubin 1.3 H Direct Bilirubin GGT AST 46 H ALT 41 H C-Reactive Protein 17.70 H Total Protein LDL Cholesterol, Calc 100 H Procalcitonin Urine Ketones Urine Urobilinogen Urine RBC Meds: Medications Acetaminophen (Tylenol) 650 mg PO Q6HP PRN PRN Reason: PAIN/FEVER > 101 Last Admin: 08/27/20 17:33 Dose: 650 mg Documented by: Hydrocodone Bitart/Acetaminophen ([place] 10/325mg) 1 tab PO Q6HP PRN; Protocol PRN Reason: Pain Last Admin: 08/28/20 17:30 Dose: 1 tab Documented by: Albuterol/Ipratropium (Duoneb) 3 ml NEB Q4HP PRN PRN Reason: Shortness Of Breath Amitriptyline HCl (Elavil) 25 mg PO HS [facility] Last Admin: 08/28/20 20:05 Dose: 25 mg Documented by: Aspirin (Aspirin) 81 mg PO DAILY [facility] Last Admin: 08/28/20 11:45 Dose: 81 mg Documented by: Atorvastatin Calcium (Lipitor) 80 mg PO HS [facility] Last Admin: 08/28/20 20:05 Dose: 80 mg Documented by: Citalopram Hydrobromide (Celexa) 10 mg PO DAILY [facility] Last Admin: 08/28/20 11:46 Dose: 10 mg Documented by: Diltiazem HCl (Cardizem Cd) 360 mg PO DAILY [facility] Last Admin: 08/28/20 11:43 Dose: 360 mg Documented by: Docusate Sodium (Colace) 100 mg PO BID [facility] Last Admin: 08/28/20 20:01 Dose: Not Given Documented by: Enoxaparin Sodium (Lovenox) 40 mg SQ DAILY [facility] Last Admin: 08/28/20 11:45 Dose: 40 mg Documented by: Hydrochlorothiazide (Oretic) 25 mg PO QDAY [facility] Last Admin: 08/28/20 11:45 Dose: 25 mg Documented by: Potassium Chloride 40 meq/ (Dextrose) 520 mls @ 130 mls/hr IV UD PRN PRN Reason: Potassium < 3 Last Infusion: 08/29/20 06:12 Dose: Infused Documented by: Magnesium Sulfate (Magnesium Sulfate) 2 gm in 50 mls @ 50 mls/hr IV UD PRN PRN Reason: Magnesium </= 1.6 Piperacillin Sod/Tazobactam (Sod 3.375 gm/ Dextrose) 50 mls @ 100 mls/hr IV Q6H [facility]; Protocol Last Infusion: 08/29/20 06:12 Dose: Infused Documented by: Labetalol HCl (Trandate) 0 mg IV Q2HP PRN PRN Reason: Hypertension Lactulose (Cephulac) 20 gm PO DAILYP PRN PRN Reason: Constipation Losartan Potassium (Cozaar) 100 mg PO DAILY [facility] Last Admin: 08/28/20 11:44 Dose: 100 mg Documented by: Metoprolol Tartrate (Lopressor) 5 mg IV Q2HP PRN PRN Reason: Tachyarrhythmias HR>110 Omeprazole (Prilosec) 20 mg PO ACB [facility] Last Admin: 08/29/20 06:26 Dose: 20 mg Documented by: Ondansetron HCl (Zofran) 4 mg IV Q4HP PRN PRN Reason: Nausea And Vomiting Pneumococcal Polyvalent Vaccine (Pneumovax 23) 0.5 ml IM .ONCE ONE Stop: 08/29/20 10:01 Potassium Chloride (Kdur) 40 meq PO UD PRN PRN Reason: Potssium is 3-3.5 Potassium Chloride (Kdur) 40 meq PO UD PRN PRN Reason: Potassium < 3 Senna (Senokot) 2 tab PO DAILYP PRN PRN Reason: Constipation Sodium Chloride (Saline Flush) 10 ml IV Q8 [facility] Last Admin: 08/29/20 05:37 Dose: 10 ml Documented by: A/P Narrative A/P Narrative: A: *?TIA with impaired cognition, difficulty recalling information; vs sepsis related -ABCD=4 -MRI no acute infarct but significant white matter disease *PAF: has been on Diltiazem/flecainide/ASA. 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 *Sinusitis/?developing oral infection left lower -CT no abscess but left jaw soft tissue swelling, swelling improved since starting abx *?GPC bacteremia 1/4 bottles, ?contaminant: *Mild transaminitis: improved *HTN: 2/2 above *hypokalemia: prn replace *GERD: on ppi P: -ASA/Statin -per cardiology notes she has refused anticoagulation d/t past GI bleeding, Anticoag stopped 2015. Still refuses. -Echo report pending -restarted BP meds (losartan/dilt/HCTZ) -cont zosyn, pending BC -PT/OT/ST -ppx: Lovenox DNR Time Spent With Patient Time: Total time spent is greater than 50% in coordination of care (as documented) at patient's floor/unit and/or counseling patient: QUALITY Stroke Onset of Symptoms Date: 08/26/20 Onset of Symptoms Time: 19:00 Symptom Onset Unknown: Yes VTE Deep Vein Thrombosis/Pulmonary Embolism Present on Admission: No
[2020-08-29 08:10] LABS: ALT/SGPT 56 U/L (<40); AST/SGOT 47 U/L (<32); Albumin 3.4 gm/dL (3.2-5.2); Albumin/Globulin Ratio 1.3 (1.0-2.3); Alkaline Phosphatase 89 U/L (39-117); Bilirubin,Direct < 0.2 mg/dL (<0.3); Bilirubin,Total 0.6 mg/dL (0.1-1.0); Blood Urea Nitrogen 10 mg/dL (8-23); Calcium 9.2 mg/dL (8.6-10.4); Carbon Dioxide 26 mmol/L (22-30); Chloride 101 mmol/L (96-108); Globulin 2.7 gm/dL (2.2-3.7); Glomerular Filtration Rate 72; Glucose 83 mg/dL (70-105); Lactate Dehydrogenase 191 U/L (135-225); Phosphorous 1.6 mg/dL (2.5-4.5); Triglycerides 109 mg/dL (<150); Uric Acid 1.8 mg/dL (2.5-8.0)
[2020-08-29] MEDS: ENOXAPARIN 40 MG/0.4 ML SYRINGE SQ SCH (08:13)
[2020-08-29] MEDS: DILTIAZEM 180 MG CAP.XL.24H PO SCH (08:13)
[2020-08-29] MEDS: LOSARTAN 50 MG TABLET PO SCH (08:13)
[2020-08-29] MEDS: ASPIRIN 81 MG TAB.CHEW PO SCH (08:13)
[2020-08-29] MEDS: DOCUSATE SODIUM 100 MG CAPSULE PO SCH ×2 (08:14→20:26)
[2020-08-29] MEDS: HYDROCHLOROTHIAZIDE 25 MG TABLET PO SCH (08:14)
[2020-08-29] MEDS: CITALOPRAM 20 MG TABLET PO SCH (08:14)
[2020-08-29] MEDS: NEUTRA PHOS 1 PACKET PO SCH ×2 (08:41→20:26)
[2020-08-29] MEDS: PHOSPHORUS 250 MG TABLET PO SCH ×2 (08:41→20:26)
[2020-08-29] MEDS ORDERED: FLU VACC QS2020-21(6MOS UP)/PF 60 MCG/0.5 ML SYRINGE IM ONE (10:00)
[2020-08-29] MEDS ORDERED: PNEUMOCOCCAL 23-VAL P-SAC VAC 0.5 ML SYRINGE IM ONE (10:00)
--- NOTE | 2020-08-29 10:51 | Discharge Summary ---
Discharge Provider Provider Patient information: Note initiated : 08/29/20 at 10:48 am Service Date, if different from initiated Date: [] Patient: Zenaida Odonnell 75 y/o F admitted on 08/27/20 for neuro symptoms. Chief Complaint: [] Date of admission: 08/27/20 16:30 Discharge date: 08/30/20 Consults: 08/27/20 Consult to Physician [CONS] Stat Comment: Consulting Provider: Smith Godfrey Reason For Exam: Physician to Consult Discharge Meds Discharge Medications Home Medications Umvjypiokrk-Ebjvn-HDR Complex 1 tab PO QDAY 08/27/20 [History Confirmed 08/27/20 Last Taken 08/26/20 08:00] Vitamin B-6 50 mg PO DAILY 08/27/20 [History Confirmed 08/27/20 Last Taken 08/26/20 08:00] amitriptyline 25 mg PO HS 08/27/20 [History Confirmed 08/27/20 Last Taken 08/26/20 21:00] aspirin 81 mg PO QDAY 08/27/20 [History Confirmed 08/27/20 Last Taken 08/26/20 08:00] citalopram 10 mg PO QDAY 08/27/20 [History Confirmed 08/27/20 Last Taken 08/26/20 08:00] diltiazem HCl [Taztia XT] 360 mg PO QDAY 08/27/20 [History Confirmed 08/27/20 Last Taken 08/27/20 09:45] ferrous sulfate 324 mg PO QDAY 08/27/20 [History Confirmed 08/27/20 Last Taken 08/26/20 08:00] garlic 1,000 mg PO DAILY 08/27/20 [History Confirmed 08/27/20 Last Taken 08/26/20 08:00] hydrochlorothiazide 25 mg PO QDAY 08/27/20 [History Confirmed 08/27/20 Last Taken 08/27/20 09:45] hydrocodone-acetaminophen 1 tab PO Q4H 08/27/20 [History Confirmed 08/27/20 Last Taken 08/27/20 05:00] losartan 100 mg PO QDAY 08/27/20 [History Confirmed 08/27/20 Last Taken 08/27/20 09:45] omega 2-rzk-vfk-fish oil [Fish Oil] 1 cap PO QDAY 08/27/20 [History Confirmed 08/27/20 Last Taken 08/26/20 08:00] omeprazole magnesium [Prilosec OTC] 20 mg PO QDAY 08/27/20 [History Confirmed 08/27/20 Last Taken 08/26/20 07:00] ceftriaxone 2 g IV QDAY #11 each 08/29/20 [Rx Last Taken Unknown] COURSE Hospital Course Hospital course: History of present illness: Ms. Odonnell is a 75 year old F Who was feeling a little bit ill yesterday complaining of some left jaw swelling and discomfort and worried about a tooth infection possibly. This morning she felt worse. And her family checked in on her she was still sleeping in which is unusual. I also found that she seemed to be mentally's slow difficulty expressing herself and they are worried about another stroke. In the ED she evaluated she had a CT head neck which showed no significant arterial stenosis and no acute stroke. The ED physician did discuss the CT with the radiologist and specifically talked about the jaw and there was noted to be some soft tissue edema but no abscess or other concerning findings, there was noted to be right sphenoid sinusitis. Neurologist was contacted. Patient was out of TPA window. Recommended MRI and echo. Patient is in sinus rhythm but does have a history of atrial fibrillation has been on flecainide diltiazem. 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 She was found to be hypertensive in the ED as well. She believes he took her medication recently. We do not have her full list of medications as nursing is currently trying to obtain that information. She does have a headache no other complaints. No chest pain shortness of breath. No numbness tingling or vision changes. No focal weakness. 08/28 Patient states she is feeling better today. No overnight events or new complaints. She feels her swelling in her jaw is improved. Mentation more clear. No leukocytosis on this morning's labs. Mild transaminitis but denies abdominal pain. Mildly elevated procalcitonin yesterday. 08/29 Feeling better. No new complaints or overnight issues. Potassium and Phos mildly low will replace. Possible 1 bottle out of 4 with a gram-positive cocci but blood culture question contaminant, further clarification. 08/30 Patient feeling well. Stable for discharge. medical reimbursement manager coordinating IV Rocephin for home. A: *Sepsis: 2/2 cellulitis left lower jaw, outside of mandible, no abscess. *Left lower jaw cellulitis outside of mandible -CT no abscess, improved since starting abx *Bacteremia(Streptococcus anginosis): 2/2 cellulitis *doubt TIA, no focal deficits just impaired cognition likely related to sepsis -MRI no acute infarct but significant white matter disease *PAF: has been on Diltiazem/flecainide/ASA. 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 She has been on ASA -follows with Infection Prevention Coordinator in [place] *Mild transaminitis: improved *HTN: 2/2 above *GERD: on ppi Discharge diagnosis: Sepsis bacteremia Streptococcus anginanosis left lower jaw cellulitis Secondary discharge diagnosis: PAF hypertension GERD Time Spent with Patient Time attestation: Total time spent providing and/or coordinating discharge services: Time spent: Greater than 30 minutes EXAM Constitutional Vitals: Temp Pulse Resp BP Pulse Ox 99 F 76 17 159/82 96 08/29/20 08:00 08/29/20 08:00 08/29/20 08:00 08/29/20 08:00 08/29/20 08:00 Discharge Data Data Completed and Pending Labs on day of discharge: Labs from last 24 hours 08/29/20 08/29/20 05:10 05:10 Sodium 137 Potassium 3.2 L Chloride 101 Carbon Dioxide 26 Anion Gap 10.0 BUN 10 Creatinine 0.8 GFR Calculation 72 Glucose 83 Uric Acid 1.8 L Calcium 9.2 Phosphorus 1.6 L Magnesium 2.0 Total Bilirubin 0.6 Direct Bilirubin < 0.2 GGT 92 H AST 47 H ALT 56 H Alkaline Phosphatase 89 Lactate Dehydrogenase 191 C-Reactive Protein 18.10 H Total Protein 6.1 Albumin 3.4 Globulin 2.7 Albumin/Globulin Ratio 1.3 Triglycerides 109 Procalcitonin 0.51 H Preliminary micro results at discharge 08/27/20 19:37 Blood Culture - Preliminary Blood Gram positive cocci 08/27/20 19:37 Blood Culture - Preliminary Blood Discharge Plan Patient/Caregiver Discharge Instructions Activity: increase activity as tolerated Diet: Cardiac Activity Restrictions/Additional Instructions: CBC/CMP in one week while on IV rocephin, send to PCP. Mid-line care and DC when ceftriaxone infusions finish course. This discharge packet is provided to you to help keep you informed about your care. We want to ensure you get everything you need when you go home. You will also be receiving a call from us in a few days to follow up with you and see how you are doing since your discharge. This gives us a chance to listen to any concerns you maybe experiencing since you were discharged or any additional needs you may have, as well as providing us feedback on your care experience. We strive to always provide excellent care and thank you for your feedback and for choosing [facility]. Prescriptions: New ceftriaxone 2 gram recon soln 2 g IV QDAY Qty: 11 RF: 0 Continued citalopram 10 mg tablet 10 mg PO QDAY RF: 0 diltiazem HCl [Taztia XT] 360 mg Capsule,Extended Release 24 Hr 360 mg PO QDAY RF: 0 hydrocodone-acetaminophen 10-325 mg tablet 1 tab PO Q4H RF: 0 garlic 1,000 mg Capsule 1,000 mg PO DAILY RF: 0 amitriptyline 25 mg tablet 25 mg PO HS RF: 0 aspirin 81 mg Tablet,Chewable 81 mg PO QDAY RF: 0 hydrochlorothiazide 25 mg tablet 25 mg PO QDAY RF: 0 losartan 100 mg tablet 100 mg PO QDAY RF: 0 omeprazole magnesium [Prilosec OTC] 20 mg Tablet,Delayed Release (Dr/Ec) 20 mg PO QDAY RF: 0 ferrous sulfate 324 mg (65 mg iron) Tablet,Delayed Release (Dr/Ec) 324 mg PO QDAY RF: 0 omega 9-nuv-uxl-fish oil [Fish Oil] 1,000 mg (120 mg-180 mg) Capsule 1 cap PO QDAY RF: 0 Onbenclnqeb-Ljmno-YOR Complex 734-074-29-0.5 mg Tablet 1 tab PO QDAY RF: 0 Vitamin B-6 50 mg Capsule 50 mg PO DAILY RF: 0 Follow Up Plan Follow up with: Dr. Alejandro Kimbrough [Other] - 09/05/20 10:40 am Patient Disposition: Home, Self-Care Prognosis: Fair Discharge Orders: Discharge Order (Routine); Ordered 08/30/20 Ordered By: Smith AMAYA VTE Deep Vein Thrombosis/Pulmonary Embolism Present on Admission: No
[2020-08-29] MEDS: cefTRIAXone 2 GM in DEXTROSE 5% IN WATER 50 ML IV SCH (13:44)
[2020-08-29] MEDS: HYDROcodone/APAP 10/325MG TABLET PO PRN (15:49)
[2020-08-29] MEDS: AMITRIPTYLINE 25 MG TABLET PO SCH (20:26)
[2020-08-29] MEDS: ATORVASTATIN 40 MG TABLET PO SCH (20:26)
[2020-08-30] MEDS: 0.9 % SODIUM CHLORIDE 10 ML SYRINGE IV SCH (05:21)
[2020-08-30] MEDS: OMEPRAZOLE 20 MG CAPSULE PO SCH (07:07)
[2020-08-30] MEDS: HYDROCHLOROTHIAZIDE 25 MG TABLET PO SCH (08:05)
[2020-08-30] MEDS: LOSARTAN 50 MG TABLET PO SCH (08:05)
[2020-08-30] MEDS: DILTIAZEM 180 MG CAP.XL.24H PO SCH (08:05)
[2020-08-30] MEDS: CITALOPRAM 20 MG TABLET PO SCH (08:05)
[2020-08-30] MEDS: ASPIRIN 81 MG TAB.CHEW PO SCH (08:05)
[2020-08-30] MEDS: ENOXAPARIN 40 MG/0.4 ML SYRINGE SQ SCH (08:06)
[2020-08-30] MEDS: DOCUSATE SODIUM 100 MG CAPSULE PO SCH (08:06)
[2020-08-30 08:27] LABS: Blood Urea Nitrogen 13 mg/dL (8-23); Calcium 9.1 mg/dL (8.6-10.4); Carbon Dioxide 25 mmol/L (22-30); Chloride 103 mmol/L (96-108); Glomerular Filtration Rate 85; Glucose 121 mg/dL (70-105)
[2020-08-30] MEDS: cefTRIAXone 2 GM in DEXTROSE 5% IN WATER 50 ML IV SCH (08:32)
== END 2020-08-30 16:25 | disposition home or self-care (01) | DRG 871 ==
LOC: ED 12:36 → ICU 16:30
PROVIDERS: ADMIT Internal Medicine; ATTEND Internal Medicine